=== PATIENT | female | born 1995 | race Caucasian/White ===

== ENCOUNTER 2019-05-09 14:43 | Emergency (ER) | payer OTHER ==
[2019-05-09] MEDS ORDERED: Ibuprofen 600 MG Tab PO ONE (15:51)
--- NOTE | 2019-05-09 15:52 | EDM.PDOC ---
ED HPI GENERAL MEDICAL PROBLEM - General Chief Complaint: Respiratory Problem Stated Complaint: PAIN WHILE BREATHING AND FEVER Time Seen by Provider: 05/09/19 15:50 Source of Information: Reports: Patient History Limitations: Reports: No Limitations - History of Present Illness INITIAL COMMENTS - FREE TEXT/NARRATIVE: 24-year-old female presents to the ED with fever and chills x2 days with harsh paroxysmal cough mild headache and loss of appetite. She states it does hurt at times a sharp stabbing pleuritic pain in her chest with coughing. She is a known asthmatic but she has not heard herself wheezing. She also got no relief from her albuterol neb utilizer that she used earlier today. Bringing up small quantities of sputum. She works at [employer] and is been exposed to other people with influenza. She is not been out of the country. She not been around anyone of the high risk states that could have exposed her to Covid- 19 Onset: Sudden Onset Date: 05/07/19 Duration: Day(s):, Getting Worse Location: Reports: Chest (Lysed fever with loss of appetite is been minimally productive cough with very some pleuritic pain.), Generalized Quality: Reports: Ache, Sharp, Stabbing Severity: Moderate Improves with: Reports: None Worsens with: Reports: Other Context: Reports: Sick Contact. Denies: Activity, Exercise (Coughing), Lifting , Trauma, Other (Through the workplace.) Associated Symptoms: Reports: Chest Pain, Cough, cough w sputum, Headaches, Loss of Appetite, Malaise, Shortness of Breath, Weakness. 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.) - Related Data Allergies Allergy/AdvReac Type Severity Reaction Status Date / Time No Known Allergies Allergy Verified 05/09/19 16:28 Home Meds: Home Meds Albuterol Sulfate [Proventil Hfa] 2 puff INH Q4H PRN 05/09/19 [History] Azithromycin [Zithromax] 250 mg PO ASDIRECTED #6 tablet 05/09/19 [Rx] Fluticasone/Vilanterol [Breo Ellipta 100-25 MCG Inhalation Kit] 1 puff INH DAILY 05/09/19 [History] Montelukast [Singulair] 10 mg PO DAILY 05/09/19 [History] Sertraline [Zoloft] 50 mg PO DAILY 05/09/19 [History] Past Medical History - Past Health History Medical/Surgical History: Denies Medical/Surgical History Social & Family History - Tobacco Use Smoking Status *Q: Never Smoker - Living Situation & Occupation Living situation: Reports: Single Occupation: Employed ED ROS GENERAL - Review of Systems Review Of Systems: See Below Constitutional: Reports: Fever, Chills, Malaise, Weakness, Fatigue, Decreased Appetite HEENT: Reports: No Symptoms Respiratory: Reports: Shortness of Breath, Pleuritic Chest Pain (At times with coughing), Cough, Sputum. Denies: Wheezing, Hemoptysis Cardiovascular: Reports: Chest Pain. Denies: Blood Pressure Problem (Only from coughing), Claudication, Dyspnea on Exertion, Edema, Lightheadedness, Orthopnea Endocrine: Reports: Fatigue GI/Abdominal: Reports: Decreased Appetite : Reports: No Symptoms Musculoskeletal: Reports: Muscle Pain Skin: Reports: No Symptoms (Mild generalized myalgia) Neurological: Reports: Dizziness Psychiatric: Reports: No Symptoms ED EXAM, GENERAL - Physical Exam Exam: See Below Exam Limited By: No Limitations General Appearance: Alert, WD/WN, No Apparent Distress, Other (Temperature is 38.3 and she feels all of this. Heart rate was 67 with respiratory to 16 BP elevated 150/98 O2 sats 100% on room air.) Eye Exam: Bilateral Eye: Normal Inspection Ears: Normal TMs (No scleral icterus or blepharal pallor.) Throat/Mouth: Normal Inspection, Normal Lips, Normal Oropharynx, Other (Tonsils are absent.) Head: Atraumatic, Normocephalic Neck: Normal Inspection, Supple, Non-Tender, Full Range of Motion. No: Carotid Bruit, Lymphadenopathy (L), Lymphadenopathy (R) Respiratory/Chest: No Respiratory Distress, Lungs Clear, Normal Breath Sounds, No Accessory Muscle Use, Chest Non-Tender. No: Rhonchi, Wheezing Cardiovascular: Normal Peripheral Pulses, Regular Rate, Rhythm, No Edema, No Gallop, No Murmur, No Rub Peripheral Pulses: 3+: Posterior Tibial (L), Posterior Tibial (R), Dorsalis Pedis (L), Dorsalis Pedis (R) GI/Abdominal: Normal Bowel Sounds, Soft, Non-Tender, No Organomegaly, No Mass, Pelvis Stable Back Exam: Normal Inspection, Full Range of Motion. No: CVA Tenderness (L), CVA Tenderness (R) Extremities: Normal Inspection, Normal Range of Motion, Non-Tender, No Pedal Edema, Normal Capillary Refill Neurological: Alert, Oriented, CN II-XII Intact, Normal Cognition, No Motor/ Sensory Deficits Psychiatric: Normal Affect, Normal Mood Skin Exam: Warm, Dry, Intact, Normal Color, No Rash Course - Vital Signs Last Recorded V/S: Last Vital Signs Temp 38.4 C H 05/09/19 16:28 Pulse 67 05/09/19 14:59 Resp 16 05/09/19 14:59 BP 150/98 H 05/09/19 14:59 Pulse Ox 100 05/09/19 14:59 - Orders/Labs/Meds Orders: Active Orders 24 hr Category Date Time Status Chest 1V Frontal [CR] Stat Exams 05/09/19 15:51 Taken Isolation [COMM] Routine Oth 05/09/19 15:52 Ordered Meds: Medications Discontinued Medications Generic Name Dose Route Start Last Admin Trade Name Kaleigh PRN Reason Stop Dose Admin Ibuprofen 600 mg 05/09/19 15:51 05/09/19 16:28 Motrin PO 05/09/19 15:52 600 mg ONETIME ONE Administration - Radiology Interpretation Free Text/Narrative:: 24-year-old female presents to the ED for evaluation of high fever chills headache paroxysmal cough with a pleuritic component to it at times and loss of appetite over the last 2 to 3 days. 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 Therefore she has been exposed to influenza. She is an asthmatic but is not wheezing at this time. Ulises Motrin 600 mg p.o. for high fever at this time. She will have 1 view chest x-ray done and an influenza screen. - Re-Assessments/Exams Free Text/Narrative Re-Assessment/Exam: 05/09/19 17:12 portable chest x-ray is within normal limits. Influenza screen is negative. Departure - Departure Time of Disposition: 17:33 Disposition: Home, Self-Care 01 Condition: Fair Clinical Impression: Acute febrile illness, Bronchitis - Discharge Information *PRESCRIPTION DRUG MONITORING PROGRAM REVIEWED*: Not Applicable *COPY OF PRESCRIPTION DRUG MONITORING REPORT IN PATIENT ALISTIAR: Not Applicable Prescriptions: Azithromycin [Zithromax] 250 mg PO ASDIRECTED #6 tablet Referrals: Cecille Moore NP [Primary Care Provider] - Forms: ED Department Discharge, ED Return to Work/School Form Additional Instructions: Dilation in the emergency room today in regards to sudden onset of high fever while over 102 degrees on examination today. Associated with a paroxysmal minimally productive cough. You are not wheezing and it does not appear to have aggravated your underlying asthma. X-ray done today shows no evidence of pneumonia. Influenza screen is negative at this point time. Just continue Motrin 600 mg every 6 hours as needed for fever relief. use Zithromax tabs as directed on the prescription. You likely should refrain from going to work if you are still running a fever. If you are still running a fever in 48 hours time you should be reviewed. Sepsis Event Note - Evaluation Sepsis Screening Result: No Definite Risk - Focused Exam Vital Signs: Vital Signs Temp Temp Pulse Resp BP Pulse Ox 05/09/19 16:28 38.4 C H 05/09/19 14:59 38.3 C H 67 16 150/98 H 100 Date Exam was Performed: 05/09/19 Time Exam was Performed: 17:33 - My Orders Last 24 Hours: My Active Orders 05/09/19 15:51 Chest 1V Frontal [CR] Stat 05/09/19 15:52 Isolation [COMM] Routine - Assessment/Plan Last 24 Hours: My Active Orders 05/09/19 15:51 Chest 1V Frontal [CR] Stat 05/09/19 15:52 Isolation [COMM] Routine
--- NOTE | 2019-05-11 07:41 | CR ---
Chest: Portable view of the chest was obtained. Comparison: No prior chest imaging is available. Heart size and mediastinum are normal. Lungs are clear with no acute parenchymal change. Bony structures are grossly intact. Impression: 1. Nothing acute is appreciated on portable chest x-ray. Diagnostic code #1 This report was dictated in MDT
== END 2019-05-09 18:08 | disposition home or self-care (01) ==
LOC: JD.ED 14:43
DX: J40 Bronchitis, not specified as acute or chronic (principal); Z79.899 Other long term (current) drug therapy
CPT/HCPCS: 71045; 87804; 99283; A9270